=== PATIENT | female | born 2005 | race Caucasian/White ===

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

== ENCOUNTER → 2023-01-22 | Outpatient (REF) | payer BC ==
[2023-01-22 18:44] LABS: FREE T4 1.05 NG/DL (0.83-1.43); THYROID STIMULATING HORMONE 1.527 uIU/ML (0.48-4.17)
[2023-01-22 18:45] LABS: IMMUNOGLOBULIN A 185.1 MG/DL (40-350)
== END ==
LOC: M LABDRAWC 16:51
PROVIDERS: ATTEND Internal Medicine Gastroenterology
DX: R19.4 Change in bowel habit (principal)